=== PATIENT | male | born 1945 | race Caucasian/White ===

== ENCOUNTER → 2017-08-05 | Outpatient (CLI) | payer OTHER | LOC: FIMAGING 12:39 | PROVIDERS: ATTEND Orthopaedic Surgery | DX: Z01.818 Encounter for other preprocedural examination (principal); M17.12 Unilateral primary osteoarthritis, left knee ==

== ENCOUNTER 2017-08-18 05:53 | Observation (INO) | payer OTHER ==
[2017-08-18] MEDS ORDERED: ROPIVACAINE 0.2% 80 MG, EPINEPHrine 0.2 MG, KETOROLAC TROMETHAMINE 30 MG in SYRINGE 0 ML IU ONE (06:00)
[2017-08-18] MEDS ORDERED: TRANEXAMIC ACID 3,000 MG in NS (SYRINGE) 50 ML IRR ONE (06:00)
[2017-08-18] MEDS ORDERED: FAMOTIDINE 20 MG TAB PO ONE (06:12)
[2017-08-18] MEDS ORDERED: DEXAMETHASONE 4 MG/ML VIAL IVP ONE (06:12)
[2017-08-18] MEDS ORDERED: ceFAZolin 2 GM/SWFI 2 GM/20 ML SYR IVP ONE (06:12)
[2017-08-18] MEDS ORDERED: ACETAMINOPHEN 325 MG TAB PO ONE (06:12)
[2017-08-18] MEDS ORDERED: LR 1,000 ML IV ONE (06:13)
[2017-08-18] MEDS ORDERED: LIDOCAINE 1% 2 ML INJ ID PRN (06:13)
[2017-08-18] MEDS ORDERED: LIDOCAINE 1% 2 ML INJ ONE ×2 (06:21→11:42)
[2017-08-18] MEDS ORDERED: TRANEXAMIC ACID 3,000 MG/50 ML BAG IRR ONE (06:44)
--- NOTE | 2017-08-18 07:01 | PDANEPAE ---
ANE History of Present Illness 71 yo male with OA in both knees for L TKA today. ANE Past Medical History - Cardiovascular History Hx Hypertension: No Hx Arrhythmias: No Hx Chest Pain: No Hx Coronary Artery / Peripheral Vascular Disease: No Hx CHF / Valvular Disease: No Hx Palpitations: No Cardiovascular History Comment: rheumatic fever at 12 yo- no cardiac issues - Pulmonary History Hx COPD: No Hx Asthma/Reactive Airway Disease: No Hx Recent Upper Respiratory Infection: No Hx Oxygen in Use at Home: No Hx Sleep Apnea: No Sleep Apnea Screening Result - Last Documented: Negative - Neurologic History Hx Cerebrovascular Accident: No Hx Seizures: No Hx Dementia: No - Endocrine History Hx Diabetes: No Hypothyroid: No - Renal History Hx Renal Disorders: No Renal History Comment: hx of nephritis shortly after rheumatic fever at 12 yo - Liver History Hx Hepatic Disorders: No - Neurological & Psychiatric Hx Hx Neurological and Psychiatric Disorders: No - Cancer History Hx Cancer: No - GI History Hx Gastrointestinal Disorders: No - Other Health History Other Health History: wears glasses - Chronic Pain History Chronic Pain: Yes (left knee) - Surgical History Prior Surgeries: left knee scope 1998. right thumb tendon repair 1999. colonoscopies ANE Review of Systems Review of Systems: - Exercise capacity METS (RN): 4 METS - Systems Constitutional: Reports: no symptoms EENMT: Reports: no symptoms Cardiac: Reports: no symptoms Respiratory: Reports: no symptoms ANE Patient History - Allergies Allergies/Adverse Reactions: No Known Allergies Allergy (Verified 07/28/17 10:27) - Home Medications Home Medications: Ibuprofen [Motrin (*)] 200 - 400 mg PO DAILY PRN 07/26/17 [Last Taken 06/19/17] diphenhydrAMINE [Benadryl 25 MG (*)] 25 mg PO HS PRN 07/26/17 [Last Taken ] - NPO status NPO Since - Liquids (Date): 08/17/17 NPO Since - Liquids (Time): 21:00 NPO Since - Solids (Date): 08/17/17 NPO Since - Solids (Time): 19:00 - Anes Hx Anes Hx: no prior problems - Smoking Hx Smoking Status: Former smoker (quit 6 yrs ago, was down to 2 cig/day for many years prior to quiting.) Marijuana use: No - Alcohol Use Alcohol Use: Occasionally (7/week) - Family Anes Hx Family Anes Hx: neg - N/A Family Hx Anesthesia Complications: none ANE Labs/Vital Signs - Vital Signs Blood Pressure: 133/82 Heart Rate: 54 Respiratory Rate: 16 O2 Sat (%): 95 Height: 177.8 cm Weight: 86.183 kg ANE Physical Exam - Airway Neck exam: FROM Mallampati Score: Class 2 Mouth exam: normal dental/mouth exam - Pulmonary Pulmonary: clear to auscultation - Cardiovascular Cardiovascular: regular rate and rhythym - ASA Status ASA Status: II ANE Anesthesia Plan Anesthesia Plan: spinal Regional Anesthesia: adductor canal FNB
[2017-08-18] MEDS ORDERED: fentaNYL 100 MCG/2 ML INJ ONE (07:09)
[2017-08-18] MEDS ORDERED: PROPOFOL/EMULSION 500 MG/50 ML BOTTLE IV ONE (07:10)
[2017-08-18] MEDS ORDERED: DEXAMETHASONE 4 MG/ML VIAL ONE (07:10)
[2017-08-18] MEDS ORDERED: LIDOCAINE 2% 5 ML SDV ONE (07:10)
--- NOTE | 2017-08-18 07:12 | PDHPUP ---
History & Physical Update H&P update statement: This history and physical update is based on an assessment of the patient which was completed after admission or registration (within 24 hours), but prior to the surgery/procedure. H&P update: H&P reviewed & patient examined, no change in patient's condition since H&P completed
[2017-08-18] MEDS ORDERED: PROMETHAZINE HCL 25 MG/ML INJ IVP PRN ×2 (07:19→08:30)
[2017-08-18] MEDS ORDERED: PROMETHAZINE HCL 25 MG SUPPR PR PRN (07:19)
[2017-08-18] MEDS ORDERED: POLYETHYLENE GLYCOL 3350 17 GM PKT PO PRN (07:19)
[2017-08-18] MEDS ORDERED: LACTULOSE 20 GM/30 ML UDCUP PO PRN (07:19)
[2017-08-18] MEDS ORDERED: METOCLOPRAMIDE 10 MG/2 ML VIAL IVP PRN (07:19)
[2017-08-18] MEDS ORDERED: DIPHENOXYLATE/ATROPINE LOMOTIL 1 TAB PO PRN (07:19)
[2017-08-18] MEDS ORDERED: CYCLOBENZAPRINE 10 MG TAB PO PRN (07:19)
[2017-08-18] MEDS ORDERED: ONDANSETRON 4 MG/2 ML VIAL IVP PRN ×2 (07:19→08:30)
[2017-08-18] MEDS ORDERED: BISACODYL 10 MG SUPP PR PRN (07:19)
[2017-08-18] MEDS ORDERED: oxyCODONE IR 5 MG TAB PO PRN (07:19)
[2017-08-18] MEDS ORDERED: TEMAZEPAM 15 MG CAP PO PRN (07:19)
[2017-08-18] MEDS ORDERED: MAGNESIUM HYDROXIDE 30 ML UDCUP PO PRN (07:19)
[2017-08-18] MEDS ORDERED: diphenhydrAMINE 25 MG CAP PO PRN (07:19)
[2017-08-18] MEDS ORDERED: ONDANSETRON DISINTEGRATING 4 MG TAB PO PRN (07:19)
[2017-08-18] MEDS ORDERED: LR 1,000 ML IV SCH (07:30)
[2017-08-18] MEDS ORDERED: ACETAMINOPHEN 500 MG TAB PO PRN (08:30)
[2017-08-18] MEDS ORDERED: NALOXONE HCL 0.4 MG/ML INJ IVP PRN (08:30)
[2017-08-18] MEDS ORDERED: OXYCODONE/APAP 5/325 TAB PO PRN (08:30)
[2017-08-18] MEDS ORDERED: fentaNYL 100 MCG/2 ML INJ IVP PRN (08:30)
[2017-08-18] MEDS ORDERED: ALBUTEROL 3 ML DEYVIAL IH PRN (08:30)
[2017-08-18] MEDS ORDERED: DIAZEPAM 10 MG/2 ML SYR IVP PRN (08:30)
--- NOTE | 2017-08-18 08:40 | POSTOPPROG ---
Post Op Note Date of Operation: 08/18/17 Surgeon: Gibran Hoffman Conservation Educator: hung hoffman Anesthesiologist: dr. cervantes Anesthesia: Spinal, Other (Specify) (adductor canal block) Pre-op Diagnosis: left knee OA Post-op Diagnosis: same Indication: left knee pain due to OA that failed conservative measures Procedure: L TKA robot assisted Findings: severe knee OA Inf/Abcess present in the surg proc area at time of surgery?: No EBL: 50-100
[2017-08-18] MEDS ORDERED: ROPIVACAINE HCL 150 MG/30 ML INJ ONE (08:49)
--- NOTE | 2017-08-18 08:58 | POSTANESTH ---
Post Anesthetic Evaluation Cardiovascular Status: Normal, Stable Respiratory Status: Normal, Stable Level of Consciousness/Mental Status: Can Participate in Eval, Mildly Sleepy, Arousable Pain Control: Adequate, Prn Tx Ordered Nausea/Vomiting Control: Adequate, Prn Tx Ordered Complications Possibly Related to Anesthesia: None Noted Notes: L adductor canal block placed upon arrival in PACU. See note on anesthesia record.
[2017-08-18] MEDS: SENNOSIDES/DOCUSATE SODIUM TAB PO SCH ×2 (09:37→21:15)
[2017-08-18] MEDS: ASPIRIN 81 MG CHEWABLE TAB PO SCH ×2 (09:37→21:15)
[2017-08-18] MEDS: ACETAMINOPHEN 325 MG TAB PO SCH ×3 (12:37→23:47)
[2017-08-18] MEDS: ceFAZolin 2 GM/SWFI 2 GM/20 ML SYR IVP SCH ×2 (13:36→21:15)
[2017-08-18] MEDS ORDERED: ceFAZolin 2 GM/DEXTROSE 100 ML IV SCH (14:00)
[2017-08-18] MEDS: FAMOTIDINE 20 MG TAB PO SCH (21:15)
[2017-08-19 04:34] VITALS: RESP 18
[2017-08-19] MEDS: ACETAMINOPHEN 325 MG TAB PO SCH (06:21)
--- NOTE | 2017-08-19 08:37 | SOAPPROG ---
SOAP Progress Note Assessment/Plan: Assessment: Patient is doing well POD 1 s/p L TKA Pain management: pain is well controlled on oral pain meds. VTE ppx: recommend aspirin 81 mg BID for 4 weeks, cont JOSSIE and SCDs Anemia: level is expected initially postop. Asymptomatic. Continue to monitor D/c planning: d/c to home today pending release from PT postop urinary retention: straight cath'd yesterday, resolved today Plan: 08/19/17 08:36 Subjective: Zeeshan is doing well, denies SOB, chest pain and n/v Objective: Vital Signs Temp Pulse Resp BP Pulse Ox 36.6 C 57 L 18 121/76 H 93 08/19/17 04:00 08/19/17 04:00 08/19/17 04:00 08/19/17 04:00 08/19/17 04:00 Laboratory Results 08/19/17 04:32 08/18/17 08/19/17 08/20/17 05:59 05:59 05:59 Intake Total 4250 20 Output Total 5 400 Balance 2215 -380 LLE : incision dressing is clean and dry, NVI, +pf/df ICD10 Worksheet Patient Problems: Problems Problem Status Onset Primary localized osteoarthritis of left knee Acute
--- NOTE | 2017-08-19 08:52 | GOP ---
[f rep st] OPERATIVE REPORT DATE OF OPERATION: 08/18/2017 SURGEON: Octavia Mcghee MD ALUMNI COORDINATOR: RICKEY Tate ANESTHESIA: Spinal. PREOPERATIVE DIAGNOSIS: Left knee osteoarthritis. POSTOPERATIVE DIAGNOSIS: Left knee osteoarthritis. PROCEDURE PERFORMED: Left total knee arthroplasty with computer navigation, robotic assist. FINDINGS: INDICATIONS: The patient is a 71-year-old male with severe and progressive pain and deformity of the left knee unresponsive to conservative care. The risks and benefits of surgical intervention were explained in detail. DESCRIPTION OF PROCEDURE: The patient was brought to the operative room and placed on the table in the supine position. Spinal anesthesia was induced without difficulty. A pneumatic tourniquet was applied about the left proximal thigh, and the leg was prepped and draped in a sterile fashion. The leg danielle was applied. After exsanguination by elevation the tourniquet was inflated to 250 mmHg. Incision was made anterior medial from the tibial tuberosity to a point 2 cm proximal to the superior pole of the patella. Medial parapatellar arthrotomy was carried out from the superior pole of the patella and posteriorly in line with the fibers of the Type II VMO. The medial collateral ligament was elevated and the infrapatellar fat pad was resected. The patella was everted and the articular surface was excised. A 30 mm patellar button was placed. Attention was turned first to the distal aspect of the femur. After exposure of the femur, 2 half pins were placed for fixation of the femoral array. In a similar fashion, 2 pins were placed anteromedial on the tibia for fixation of the tibial array. External land marking and registration of the hip center was performed without difficulty. Internal femoral and tibial registration was carried out without difficulty and the femoral and tibial checkpoints were placed and verified for accuracy. Attention was turned to the femur. The foot print for the size 5 femoral component was cut with the saw using the [employer] robotic system and verified for accuracy against the CT based plan. In a similar fashion, the saw was used to cut the footprint for the size 6 tibial component using the [employer] system and verified for accuracy against the CT based plan. The tibial articular surface was excised without difficulty, followed by the intercondylar box cut. The knee was extended and the remnants of the medial and lateral meniscus were excised. The posterior capsule was injected with ropivacaine, epinephrine and Toradol. A size 6 tibial tray was positioned. Trial reduction was then carried out. There was excellent range of motion, alignment, and stability using the 9 mm polyethylene. All trials were then removed. The joint was thoroughly irrigated and carefully dried. The press-fit components were implanted. The permanent 9 mm polyethylene was placed without difficulty. The tourniquet was deflated and all bleeders were coagulated. The wound was thoroughly irrigated and closed using interrupted sutures of 2-0 Vicryl for the joint capsule. The subcu was closed with 3-0 Vicryl and the skin with 4-0 Monocryl. Dermabond and Steri-Strips were applied followed by a compressive dressing. The patient was then moved from the operating room to the recovery room in good condition, having tolerated the procedure well. /[id number]/MODL MTDD
[2017-08-19 09:00] VITALS: BP 121/66; PULSE 61; TEMP 97.9; O2SAT 94
[2017-08-19] MEDS: FAMOTIDINE 20 MG TAB PO SCH (09:07)
[2017-08-19] MEDS: ASPIRIN 81 MG CHEWABLE TAB PO SCH (09:07)
[2017-08-19] MEDS: SENNOSIDES/DOCUSATE SODIUM TAB PO SCH (09:07)
== END 2017-08-19 10:31 | disposition home or self-care (01) ==
LOC: INTOOBSV 05:53 → F3N 05:53
PROVIDERS: ADMIT Orthopaedic Surgery; ATTEND Orthopaedic Surgery
DX: M17.12 Unilateral primary osteoarthritis, left knee (principal)
CPT/HCPCS: 20985; 27447; 73560; 88311; 97110; 97116; 97161; 97165; 97530; C1776; G8978; G8979; G8980; G8987; G8988; G8989; J0171; J0690; J1100; J1885; J2704; J2795; J3010

== ENCOUNTER → 2017-11-18 | Outpatient (CLI) | payer OTHER | LOC: FIMAGING 11:47 | PROVIDERS: ATTEND Orthopaedic Surgery | DX: M17.11 Unilateral primary osteoarthritis, right knee (principal) ==

== ENCOUNTER 2017-11-24 13:15 | Observation (INO) | payer OTHER ==
[2018-01-13] MEDS ORDERED: TRANEXAMIC ACID 3,000 MG in NS (SYRINGE) 50 ML IRR ONE (15:57)
[2018-01-13] MEDS ORDERED: ACETAMINOPHEN 325 MG TAB PO ONE (15:57)
[2018-01-13] MEDS ORDERED: DEXAMETHASONE 4 MG/ML VIAL IVP ONE (15:57)
[2018-01-13] MEDS ORDERED: ROPIVACAINE 0.2% 80 MG, EPINEPHrine 0.2 MG, KETOROLAC TROMETHAMINE 30 MG in SYRINGE 0 ML IU ONE (15:57)
[2018-01-13] MEDS ORDERED: ceFAZolin 2 GM/DEXTROSE 100 ML IV ONE (15:57)
[2018-01-13] MEDS ORDERED: FAMOTIDINE 20 MG TAB PO ONE (15:57)
[2018-01-14] MEDS ORDERED: ROPIVACAINE 0.2% 80 MG, EPINEPHrine 0.2 MG, KETOROLAC TROMETHAMINE 30 MG in SYRINGE 0 ML IU ONE (06:00)
[2018-01-14] MEDS ORDERED: TRANEXAMIC ACID 3,000 MG in NS (SYRINGE) 50 ML IRR ONE (06:00)
[2018-01-14] MEDS ORDERED: FAMOTIDINE 20 MG TAB PO ONE (07:28)
[2018-01-14] MEDS ORDERED: ACETAMINOPHEN 325 MG TAB PO ONE (07:28)
[2018-01-14] MEDS ORDERED: DEXAMETHASONE 4 MG/ML VIAL IVP ONE (07:28)
[2018-01-14] MEDS ORDERED: ceFAZolin 2 GM/DEXTROSE 100 ML IV ONE (07:28)
[2018-01-14] MEDS ORDERED: LR 1,000 ML IV ONE (07:29)
[2018-01-14] MEDS ORDERED: TRANEXAMIC ACID 3,000 MG/50 ML BAG IRR ONE (07:52)
[2018-01-14] MEDS ORDERED: MIDAZOLAM 2 MG/2 ML VIAL ONE (09:00)
[2018-01-14] MEDS ORDERED: MIDAZOLAM 2 MG/2 ML VIAL IVP ONE (09:01)
--- NOTE | 2018-01-14 09:02 | PDANEPAE ---
ANE Past Medical History - Cardiovascular History Hx Hypertension: No Hx Arrhythmias: No Hx Chest Pain: No Hx Coronary Artery / Peripheral Vascular Disease: No Hx CHF / Valvular Disease: No Hx Palpitations: No Cardiovascular History Comment: rheumatic fever at 12 yo- no cardiac issues - Pulmonary History Hx COPD: No Hx Asthma/Reactive Airway Disease: No Hx Recent Upper Respiratory Infection: No Hx Oxygen in Use at Home: No Hx Sleep Apnea: No Sleep Apnea Screening Result - Last Documented: Negative - Neurologic History Hx Cerebrovascular Accident: No Hx Seizures: No Hx Dementia: No - Endocrine History Hx Diabetes: No - Renal History Hx Renal Disorders: No Renal History Comment: hx of nephritis shortly after rheumatic fever at 12 yo - Liver History Hx Hepatic Disorders: No - Neurological & Psychiatric Hx Hx Neurological and Psychiatric Disorders: No - Cancer History Hx Cancer: No - Congenital Disorder History Hx Congenital Disorders: No - GI History Hx Gastrointestinal Disorders: No - Other Health History Other Health History: wears glasses - Chronic Pain History Chronic Pain: Yes (left knee) - Surgical History Prior Surgeries: left knee scope 1998. right thumb tendon repair 1999. colonoscopies ANE Review of Systems Review of Systems: - Exercise capacity METS (RN): 5 METS ANE Patient History - Allergies Allergies/Adverse Reactions: No Known Allergies Allergy (Verified 07/28/17 10:27) - Home Medications Home Medications: diphenhydrAMINE [Benadryl 25 MG (*)] 25 mg PO HS PRN 07/26/17 [Last Taken ] Naproxen Sodium [Aleve 220 MG (*)] 220 mg PO DAILY PRN 11/10/17 [Last Taken 2 Months Ago ~11/14/17] - NPO status NPO Since - Liquids (Date): 01/14/18 NPO Since - Liquids (Time): 05:00 NPO Since - Solids (Date): 01/13/18 NPO Since - Solids (Time): 19:00 - Smoking Hx Smoking Status: Former smoker - Family Anes Hx Family Hx Anesthesia Complications: none ANE Labs/Vital Signs - Vital Signs Blood Pressure: 140/96 Heart Rate: 53 Respiratory Rate: 14 O2 Sat (%): 96 Height: 180.34 cm Weight: 86.636 kg ANE Physical Exam - Airway Neck exam: FROM Mallampati Score: Class 1 Mouth exam: normal dental/mouth exam - Pulmonary Pulmonary: no respiratory distress - Cardiovascular Cardiovascular: regular rate and rhythym - ASA Status ASA Status: I ANE Anesthesia Plan Anesthesia Plan: GA w LMA, spinal Regional Anesthesia: adductor canal FNB
[2018-01-14] MEDS ORDERED: PROPOFOL/EMULSION 500 MG/50 ML BOTTLE IV ONE ×2 (09:24→09:36)
[2018-01-14] MEDS ORDERED: fentaNYL 100 MCG/2 ML INJ ONE (09:36)
[2018-01-14] MEDS ORDERED: LIDOCAINE 2% 5 ML SDV ONE (10:24)
[2018-01-14] MEDS ORDERED: ePHEDrine SULFATE 25 MG/5 ML SYR ONE (10:24)
[2018-01-14] MEDS ORDERED: ROPIVACAINE HCL 150 MG/30 ML INJ ONE (10:25)
[2018-01-14] MEDS ORDERED: diphenhydrAMINE 25 MG CAP PO PRN (10:43)
[2018-01-14] MEDS ORDERED: ONDANSETRON DISINTEGRATING 4 MG TAB PO PRN (10:43)
[2018-01-14] MEDS ORDERED: DIPHENOXYLATE/ATROPINE LOMOTIL 1 TAB PO PRN (10:43)
[2018-01-14] MEDS ORDERED: BISACODYL 10 MG SUPP PR PRN (10:43)
[2018-01-14] MEDS ORDERED: ONDANSETRON 4 MG/2 ML VIAL IVP PRN ×2 (10:43→11:17)
[2018-01-14] MEDS ORDERED: MAGNESIUM HYDROXIDE 30 ML UDCUP PO PRN (10:43)
[2018-01-14] MEDS ORDERED: PROMETHAZINE HCL 25 MG/ML INJ IVP PRN (10:43)
[2018-01-14] MEDS ORDERED: TEMAZEPAM 15 MG CAP PO PRN (10:43)
[2018-01-14] MEDS ORDERED: METOCLOPRAMIDE 10 MG/2 ML VIAL IVP PRN (10:43)
[2018-01-14] MEDS ORDERED: LACTULOSE 20 GM/30 ML UDCUP PO PRN (10:43)
[2018-01-14] MEDS ORDERED: PROMETHAZINE HCL 25 MG SUPPR PR PRN (10:43)
[2018-01-14] MEDS ORDERED: CYCLOBENZAPRINE 10 MG TAB PO PRN (10:43)
[2018-01-14] MEDS ORDERED: POLYETHYLENE GLYCOL 3350 17 GM PKT PO PRN (10:43)
[2018-01-14] MEDS ORDERED: oxyCODONE IR 5 MG TAB PO PRN (10:43)
--- NOTE | 2018-01-14 10:43 | POSTOPPROG ---
Post Op Note Date of Operation: 01/14/18 Surgeon: Gibran Hoffman [place] Nurse: hung hoffman Anesthesiologist: dr. govea Anesthesia: Spinal, Other (Specify) (adducto canal block) Pre-op Diagnosis: right knee OA Post-op Diagnosis: same Indication: right knee pain Procedure: R TKA robot assisted, computer navigation, sensor assisted Findings: severe knee OA Inf/Abcess present in the surg proc area at time of surgery?: No EBL: 50-100
[2018-01-14] MEDS ORDERED: LR 1,000 ML IV SCH (11:00)
[2018-01-14] MEDS ORDERED: NS 500 ML IV PRN (11:17)
[2018-01-14] MEDS ORDERED: NALOXONE HCL 0.4 MG/ML INJ IVP PRN (11:17)
[2018-01-14] MEDS ORDERED: fentaNYL 100 MCG/2 ML INJ IVP PRN (11:17)
[2018-01-14] MEDS: ACETAMINOPHEN 325 MG TAB PO SCH ×3 (13:51→23:40)
[2018-01-14] MEDS: ceFAZolin 2 GM/DEXTROSE 100 ML IV SCH (17:41)
[2018-01-14] MEDS: FAMOTIDINE 20 MG TAB PO SCH (21:14)
[2018-01-14] MEDS: ASPIRIN 81 MG CHEWABLE TAB PO SCH (21:14)
[2018-01-14] MEDS: SENNOSIDES/DOCUSATE SODIUM TAB PO SCH (21:14)
[2018-01-15] MEDS: ceFAZolin 2 GM/DEXTROSE 100 ML IV SCH (01:54)
[2018-01-15] MEDS: ACETAMINOPHEN 325 MG TAB PO SCH (05:44)
[2018-01-15 07:58] VITALS: BP 115/74
[2018-01-15] MEDS: SENNOSIDES/DOCUSATE SODIUM TAB PO SCH (08:25)
[2018-01-15] MEDS: ASPIRIN 81 MG CHEWABLE TAB PO SCH (08:25)
[2018-01-15] MEDS: FAMOTIDINE 20 MG TAB PO SCH (08:25)
--- NOTE | 2018-01-15 11:17 | SOAPPROG ---
SOAP Progress Note Assessment/Plan: Assessment: Zeeshan is doing well POD 1 s/p R TKA pain is well controlled on oral pain meds VTe ppx: recommend ASA 81 mg BID for 4 weeks d/c planning: d/c to home pending release from PT Plan: 01/15/18 11:15 Subjective: Zeeshan is doing well today, denies SOB, chest pain and N/V. Objective: Vital Signs Temp Pulse Resp BP Pulse Ox 36.4 C 59 L 16 115/74 95 01/15/18 07:57 01/15/18 07:57 01/15/18 07:57 01/15/18 07:57 01/15/18 07:57 Laboratory Results 01/15/18 04:41 01/14/18 01/15/18 01/16/18 05:59 05:59 05:59 Intake Total 2858 Output Total 1250 Balance 1608 RLE: incision dressing is clean and dry, NVI, +pf/df ICD10 Worksheet Patient Problems: Problems Problem Status Onset Primary localized osteoarthritis of right knee Acute Primary localized osteoarthritis of left knee Acute
--- NOTE | 2018-01-15 16:27 | GOP ---
[f rep st] OPERATIVE REPORT DATE OF OPERATION: 01/14/2018 SURGEON: Octavia Mcghee MD CAGE SHIFT MANAGER: Filomena Mcghee PA-C ANESTHESIA: Spinal. PREOPERATIVE DIAGNOSIS: Right knee osteoarthritis. POSTOPERATIVE DIAGNOSIS: Right knee osteoarthritis. PROCEDURE PERFORMED: Right total knee replacement with computer navigation, robotic assist. FINDINGS: ESTIMATED BLOOD LOSS: 30 mL INDICATIONS: The patient is a 72-year-old male with severe and progressive pain and deformity of the right knee unresponsive to conservative care. The risks and benefits of surgical intervention were explained in detail. DESCRIPTION OF PROCEDURE: The patient was brought to the operative room and placed on the table in the supine position. Spinal anesthesia was induced without difficulty. A pneumatic tourniquet was applied about the right proximal thigh, and the leg was prepped and draped in a sterile fashion. The leg danielle was applied. After exsanguination by elevation the tourniquet was inflated to 250 mmHg. Incision was made anterior medial from the tibial tuberosity to a point 2 cm proximal to the superior pole of the patella. Medial parapatellar arthrotomy was carried out from the superior pole of the patella and posteriorly in line with the fibers of the Type II VMO. The medial collateral ligament was elevated and the infrapatellar fat pad was resected. The patella was everted and the articular surface was excised. A 38 mm patellar button was placed. Attention was turned first to the distal aspect of the femur. After exposure of the femur, 2 half pins were placed for fixation of the femoral array. In a similar fashion, 2 pins were placed anteromedial on the tibia for fixation of the tibial array. External land marking and registration of the hip center was performed without difficulty. Internal femoral and tibial registration was carried out without difficulty and the femoral and tibial checkpoints were placed and verified for accuracy. Attention was turned to the femur. The foot print for the size 5 femoral component was cut with the saw using the [employer] robotic system and verified for accuracy against the CT based plan. In a similar fashion, the saw was used to cut the footprint for the size 6 tibial component using the [employer] system and verified for accuracy against the CT based plan. The tibial articular surface was excised without difficulty, followed by the intercondylar box cut. The knee was extended and the remnants of the medial and lateral meniscus were excised. The posterior capsule was injected with ropivacaine, epinephrine and Toradol. A size 6 tibial tray was positioned. Trial reduction was then carried out. There was excellent range of motion, alignment, and stability using the 6 x 9 mm polyethylene. [employer] smart trial was used to comfirm joint balance and rotation. All trials were then removed. The joint was thoroughly irrigated and carefully dried. The press-fit components were implanted. The permanent 9 mm polyethylene was placed without difficulty. The tourniquet was deflated and all bleeders were coagulated. The wound was thoroughly irrigated and closed using interrupted sutures of 2-0 Vicryl for the joint capsule. The subcu was closed with 3-0 Vicryl and the skin with 4-0 Monocryl. Dermabond and Steri-Strips were applied followed by a compressive dressing. The patient was then moved from the operating room to the recovery room in good condition, having tolerated the procedure well. ANESTHESIA: Spinal. /[id number]/MODL MTDD
--- NOTE | 2018-01-21 02:33 | GDS ---
[f rep st] DISCHARGE SUMMARY ADMISSION DIAGNOSIS: Right knee osteoarthritis. DISCHARGE DIAGNOSIS: Right knee osteoarthritis. PROCEDURE: Right total knee arthroplasty, MAKOplasty robotic assisted. VTE PROPHYLAXIS: Recommend aspirin 81 mg x4 weeks. BRIEF DESCRIPTION OF HOSPITAL STAY: Patient was admitted for an elective joint arthroplasty. The pa divya tolerated the procedure well and has passed physical therapy. The patient was given appropriat e antibiotic prophylaxis and venous thromboembolism prophylaxis. The patient's pain was well control led on oral pain medication, patient was holding down food, and had urinated. Decision was made to d ischarge the patient. The patient was given post-operative prescriptions pre-operatively. PLAN: Follow up as scheduled in Dr. Mcghee's office. /[id number]/MODL
--- NOTE | 2018-01-27 10:01 | GPROG ---
[f rep st] PROGRESS NOTE The patient's cardiovascular status is normal, stable. The patient's respiratory status is normal, stable. Pain control is satisfactory at this time with p.r.n. treatment ordered. Nausea and vomiting control are satisfactory at this time with p.r.n. treatment ordered. Mental stat us: The patient is moderately sleepy, easily arousable. Complications due to anesthesia are none at this time. /[id number]/MODL
== END 2018-01-15 11:22 | disposition home or self-care (01) ==
LOC: F3N 01-14 07:13
PROVIDERS: ADMIT Orthopaedic Surgery; ATTEND Orthopaedic Surgery
DX: M17.11 Unilateral primary osteoarthritis, right knee (principal); Z87.891 Personal history of nicotine dependence; Z82.49 Family history of ischemic heart disease and other diseases of the circulatory system
CPT/HCPCS: 20985; 27447; 73560; 88311; 97116; 97161; C1776; G8978; G8979; G8980; J0171; J0690; J1100; J1885; J2250; J2704; J2795; J3010

== ENCOUNTER → 2017-12-22 | Outpatient (CLI) | payer OTHER | LOC: FIMAGING 08:14 | PROVIDERS: ATTEND Orthopaedic Surgery | DX: M17.11 Unilateral primary osteoarthritis, right knee (principal) ==